=== PATIENT | female | born 1980 | race Caucasian/White ===

== ENCOUNTER 2021-05-03 15:11 | Emergency (ER) | payer BC, OTHER ==
[~2021-05-03] VITALS: Ht 162.6 cm; Wt 95.3 kg
[2021-05-03] MEDS ORDERED: TRAMADOL HCL 50 MG TAB PO ONE (15:45)
[2021-05-03] MEDS ORDERED: ULTRAM50 MG PO (17:02)
== END 2021-05-03 17:22 | disposition home or self-care (01) ==
LOC: ER 15:29
DX: S52.602A Unspecified fracture of lower end of left ulna, initial encounter for closed fracture (principal); W10.8XXA Fall (on) (from) other stairs and steps, initial encounter; Y93.01 Activity, walking, marching and hiking; Y92.39 Other specified sports and athletic area as the place of occurrence of the external cause
CPT/HCPCS: 99283